=== PATIENT | male | born 1940 | race Caucasian/White ===

== ENCOUNTER 2020-03-09 08:27 | Outpatient (REF) | payer MEDICARE, SELFPAY | END 2020-03-09 08:28 | disposition home or self-care (01) | LOC: HO.WFDLDS 08:27 | PROVIDERS: PCP Internal Medicine; Visit Provider Internal Medicine | DX: Z20.828 Contact with and (suspected) exposure to other viral communicable diseases (principal) | CPT/HCPCS: C9803; U0003 ==

== ENCOUNTER 2020-04-06 09:23 | Outpatient (REF) | payer MEDICARE, SELFPAY | END 2020-04-06 09:24 | disposition home or self-care (01) | LOC: HO.WFDLDS 09:23 | PROVIDERS: Visit Provider Internal Medicine | DX: Z20.822 Contact with and (suspected) exposure to COVID-19 (principal) | CPT/HCPCS: 36415; C9803; U0003 ==